=== PATIENT | female | born 1950 | race Caucasian/White ===

== ENCOUNTER → 2017-03-26 | Day surgery (SDC) | payer MEDICARE ==
[2017-03-26 07:59] LABS: HEMOGLOBIN 13.7 g/dL (12.2-16.2); LYMPH # 1.8 K/mm3 (0.7-4.5); LYMPH % 31.9 % (10-50.0)
[2017-03-26 08:13] LABS: BUN 24 mg/dL (7-18)
[2017-03-26 08:15] LABS: GFR (ESTIMATED) 38 ML/MIN (59-)
--- NOTE | 2017-03-26 11:38 | RADIOLOGY REPORT PS360 ---
CARDIAC CATHETERIZATION DATE OF CATHETERIZATION:03/26/2017 9:02 AM PROCEDURES: 1. Left heart catheterization 2. Left ventriculogram 3. Selective coronary angiogram INDICATION FOR TEST: 1. Known coronary artery disease 2. Angina pectoris class IV 3. Risk factors for coronary artery disease 4. Unable to take statin therapy Informed consent was obtained prior to the procedure. COMPLICATIONS: None ESTIMATED BLOOD LOSS: Less than 10 ml. TECHNIQUE: One percent lidocaine used to anesthetize the right anterior aspect of the wrist. The right radial artery was accessed via the Seldinger technique. A 6 German sheath was placed in the right radial artery. 2.5 mg of verapamil, 800 mcg of nitroglycerin and 5000 U Heparin were given through the arterial sheath. The [employer] catheter was also used to perform left heart catheterization and left ventriculography. At the end of the procedure the patient was transferred to the post-op holding area in stable condition for arterial sheath removal. ANGIOGRAPHIC RESULTS: 1. The left main artery has distal 10% stenosis 2. The left anterior descending artery has proximal 10-20% stenosis with mid vessel 10% stenoses 3. The circumflex artery is a nondominant vessel and has proximal sequential 20% stenoses 4. The right coronary artery is a dominant vessel and has a stent in the proximal mid and distal segment in a contiguous manner. The proximal portion and distal portion of the stent has excellent transitioning to the [place] vessel. This stent is widely patent with mild in-stent restenosis. Distal vasculature is free of significant disease 5. The [place] ventriculogram reveals 65% 6. The left ventricular end-diastolic pressure elevated at 30 mmHg IMPRESSION: 1. Coronary artery disease as described above with widely patent stents throughout the dominant right coronary artery 2. Normal ejection fraction 3. Moderate to severely elevated LVEDP PLAN: 1. Continue risk factor modification 2. Patient requires diuretics in order to decrease LVEDP 3. Medical management
[2017-03-26 13:03] VITALS: BP 146/64
== END ==
LOC: CATHLAB 07:19
PROVIDERS: Internal Medicine
PROC: B2111ZZ Fluoroscopy of Multiple Coronary Arteries using Low Osmolar Contrast (ICD-10-PCS; 2017-03-26)
PROC: B2151ZZ Fluoroscopy of Left Heart using Low Osmolar Contrast (ICD-10-PCS; 2017-03-26)
PROC: 4A023N7 Measurement of Cardiac Sampling and Pressure, Left Heart, Percutaneous Approach (ICD-10-PCS; principal; 2017-03-26 10:15)
DX: I25.118 Atherosclerotic heart disease of native coronary artery with other forms of angina pectoris (principal); Z95.5 Presence of coronary angioplasty implant and graft
CPT/HCPCS: C1725; C1769; J1644; Q9967